=== PATIENT | female | born 1975 | race Caucasian/White ===

== ENCOUNTER 2018-07-16 08:39 | Emergency (ER) | payer OTHER ==
[~2018-07-16] VITALS: Wt 117.9 kg
[2018-07-16] MEDS ORDERED: MEDROL DOSEPAK4 MG PO (08:46)
[2018-07-16] MEDS ORDERED: Fioricet 325 MG1 TAB PO ×2 (14:42→14:44)
== END 2018-07-16 14:45 | disposition home or self-care (01) ==
LOC: ED 08:39
DX: S16.1XXA Strain of muscle, fascia and tendon at neck level, initial encounter (principal); M25.511 Pain in right shoulder; Z88.1 Allergy status to other antibiotic agents; Z88.6 Allergy status to analgesic agent; Z79.899 Other long term (current) drug therapy; V49.59XA Passenger injured in collision with other motor vehicles in traffic accident, initial encounter; Y93.89 Activity, other specified; Y92.413 State road as the place of occurrence of the external cause; Y99.9 Unspecified external cause status